=== PATIENT | female | born 2000 | race Caucasian/White ===

== ENCOUNTER 2024-05-19 01:35 | Emergency (ER) | payer SELFPAY ==
[~2024-05-19] VITALS: Ht 162.6 cm; Wt 97.5 kg
[2024-05-19 01:49] VITALS: BP 106/56; PULSE 53; RESP 18; TEMP 97.3; O2SAT 98
[2024-05-19 03:19] VITALS: BP 106/56; PULSE 53; RESP 18; TEMP 97.3; O2SAT 98
== END 2024-05-19 03:19 | disposition home or self-care (01) ==
LOC: MED 01:35
DX: S01.21XA Laceration without foreign body of nose, initial encounter (principal); W20.8XXA Other cause of strike by thrown, projected or falling object, initial encounter; Y93.89 Activity, other specified; Y92.89 Other specified places as the place of occurrence of the external cause; Y99.8 Other external cause status
CPT/HCPCS: 90471; 90715; 99283

== ENCOUNTER 2024-05-19 16:57 | Emergency (ER) | payer SELFPAY ==
[~2024-05-19] VITALS: Ht 162.6 cm; Wt 96.8 kg
[2024-05-19 17:42] VITALS: BP 106/65; PULSE 69; RESP 19; TEMP 98.4; O2SAT 98
== END 2024-05-19 19:29 | disposition home or self-care (01) ==
LOC: MED 16:57
DX: S01.21XD Laceration without foreign body of nose, subsequent encounter (principal); X58.XXXD Exposure to other specified factors, subsequent encounter
CPT/HCPCS: 99281